=== PATIENT | female | born 1955 | race Asian ===

== ENCOUNTER → 2017-05-09 | Outpatient (CLI) | payer OTHER ==
--- NOTE | 2017-05-13 09:44 | CPEEG ---
[f rep st] ELECTROENCEPHALOGRAM DATE OF STUDY: 05/09/2017 DATE OF INTERPRETATION: 05/13/2017. INTERPRETATION: This EEG contains a mild degree of diffuse nonspecific slowing. These findings could be consistent with a mild diffuse disturbance of cerebral function. There were no definite potentially epileptogenic abnormalities present during the awake or sleep recordings. REPORT: This EEG contained 8 Hz alpha activity to the posterior head regions. There was a mild degree of diffuse theta slowing present in the background activity on an intermittent basis. There was no abnormal activation at rest, during photic stimulation or hyperventilation. There were rare sharp waves and contoured waveforms over the right frontal head region, likely artifactual. The patient became drowsy and fell into light sleep during the study. There was no abnormal activation during drowsiness, sleep or during time of arousal. /[id number]/MODL MTDD
== END ==
LOC: FCPNEURO 14:27
PROVIDERS: ATTEND Psychiatry & Neurology Neurology
DX: F09 Unspecified mental disorder due to known physiological condition (principal); F07.89 Other personality and behavioral disorders due to known physiological condition